=== PATIENT | female | born 1975 | race Caucasian/White ===

== ENCOUNTER → 2017-07-13 | Outpatient (CLI) | payer BC ==
[2017-07-13 10:38] LABS: Basophils % (A) 1 %; CH 32.4; CHCM 34.9; Eosinophils # (A) 0.3 k/uL (0-0.7); Eosinophils % (A) 5 %; HCT 43.7 % (34.0-46.0); HDW 2.68; HGB 14.4 gm/dL (11.4-16.0); Luc # (Auto) 0.15; Luc % (Auto) 2; Lymphocytes # (A) 2.2 k/uL (1.0-4.8); Lymphocytes % (A) 31 %; MCH 30.9 pg (25.0-35.0); MCV 93.5 fL (80.0-100.0); Mean Platelet Volume 7.1; Monocytes # (A) 0.4 k/uL (0-1.0); Monocytes % (A) 5 %; Neutrophils # (A) 4.1 k/uL (1.3-7.7); Neutrophils % (A) 57 %; RBC 4.68 m/uL (3.80-5.40); RDW 13.7 % (11.5-15.5); WBC 7.2 k/uL (3.8-10.6); WBC (Perox) 6.86
== END | disposition home or self-care (01) ==
LOC: LABPAT 10:03
PROVIDERS: ATTEND Anesthesiology
DX: Z01.812 Encounter for preprocedural laboratory examination (principal)
CPT/HCPCS: 85025; 86850; 86900; 86901

== ENCOUNTER 2017-07-17 09:41 | Day surgery (SDC) | payer BC ==
[2017-07-10 11:23] VITALS: BMI 33.8
[~2017-07-17 09:41] MED LIST: DEXAMETHASONE SOD PHOSPHATE 10 MG/ML 1 ML VIAL IV ONE; LACTATED RINGERS 1,000 ML IV SCH; LIDOCAINE 1% 20 ML VIAL (10MG/ML) FOR IV START INTRADERMA PRN; ONDANSETRON 4 MG/2 ML VIAL IVP ONE; SCOPOLAMINE 1.5MG/72HR PATCH TRANSDERM ONE; ceFAZolin 2 GM in SODIUM CHLORIDE 0.9% 100 ML IVPB ONE
[2017-07-17] MEDS ORDERED: LACTATED RINGERS 1,000 ML IV ONE ×2 (10:30→13:30)
[2017-07-17] MEDS ORDERED: HEPARIN SODIUM,PORCINE 5,000 UNIT/ML 1 ML VIAL SQ ONE (10:57)
[2017-07-17] MEDS ORDERED: MIDAZOLAM 2 MG/2 ML VIAL IVP ONE (11:03)
[2017-07-17] MEDS ORDERED: ROCURONIUM BROMIDE 10 MG/ML 10 ML VIAL IV ONE (11:59)
[2017-07-17] MEDS ORDERED: fentaNYL (PF) 50 MCG/ML 2 ML AMP ONE (11:59)
[2017-07-17] MEDS ORDERED: PROPOFOL 10 MG/ML 20 ML VIAL IV ONE (11:59)
[2017-07-17] MEDS ORDERED: LIDOCAINE 1% INJ 10MG/ML (20 ML MDV) ONE (11:59)
[2017-07-17] MEDS ORDERED: SUCCINYLCHOLINE CHLORIDE 100 MG/5 ML SYR IV ONE (11:59)
[2017-07-17] MEDS ORDERED: BUPIVACAINE (PF) 0.25% 30 ML VIAL SQ ONE (12:40)
[2017-07-17] MEDS ORDERED: NALOXONE 0.4 MG/ML 1 ML VIAL IV PRN (14:05)
[2017-07-17] MEDS ORDERED: HYDROcodone/APAP 5-325MG 1 EACH TAB PO PRN (14:05)
--- NOTE | 2017-07-17 14:09 | P.OP ---
Date of Procedure: 07/17/17 Preoperative Diagnosis: Postoperative Diagnosis: Procedure(s) Performed: PREOPERATIVE DIAGNOSIS: Incisional and umbilical hernia POSTOPERATIVE DIAGNOSIS: Same PROCEDURE: Laparoscopic repair incisional and umbilical hernia with da León robotic assistance with mesh SURGEON: Neel EBL: Rhett Isbell ANESTHESIA: Gen. COMPLICATIONS: None OPERATIVE PROCEDURE: Patient was placed on the operating room table in the supine position. Patient was then placed under general anesthesia. The abdomen was prepped and draped in usual sterile fashion. A 5 mm optical trocar was used to enter the abdominal cavity in the left subcostal location and laterally. Insufflation took place fully to 15 mm of mercury. At that point a 12 mm trocar was placed laterally in the mid abdomen. An 8 mm trocar was placed in the left lower quadrant. The initial 5 was then switched to an 8 mm trocar as well. All of these were placed under direct visualization. The trochars were placed so that the neutral center of the trocar was within the abdominal wall. The da León robot was then docked after placing the patient in a slight right decubitus position. I then left the bedside and moved to the da León console. The patient's hernia was inspected. In this particular case the patient had a total of 4 defects. 2 were positioned [id number] at the umbilicus one in the supraumbilical location and one in the infraumbilical location. The most superior defect was closed using a running 0V lock stitch the umbilical incisions were closed horizontally using a running 0V lock stitch. The infraumbilical defect was quite small measuring only a few millimeters in was closed using a single kpetln-po-lqnor 0V lock stitch. A portion of the preperitoneal fat was removed in preparation for closure and this was later removed labeled hernia sac. A 10 x 15 cm mesh was chosen. This was a ventral light ST mesh. This was sutured circumferentially using 2-0 V lock sutures. This was performed in a running fashion using 2 separate sutures. The middle portion of the mesh was also sutured to the abdominal wall. This provided excellent coverage of our fascial closure. We then switched to a traditional laparoscopic approach. The 4 needles were removed at that point. The defect at the 12 mm trocar site was closed using an 0 Vicryl suture and the Gurmeet Crain technique. The skin at all 3 sites were closed using interrupted 4-0 Monocryl sutures. Steri-Strips and sterile dressings were applied. DISPOSITION: Stable to recovery room Implants: Indications for Procedure: Operative Findings: Description of Procedure:
[2017-07-17 14:13] VITALS: TEMP 98.3
[2017-07-17] MEDS: fentaNYL (PF) 50 MCG/ML 2 ML AMP IV PRN ×2 (14:28→14:36)
[2017-07-17] MEDS ORDERED: KETOROLAC 30 MG/ML 1 ML VIAL IVP ONE (14:30)
[2017-07-17 16:32] VITALS: RESP 18
[2017-07-17 17:03] VITALS: BP 105/68; PULSE 81
== END 2017-07-17 17:36 | disposition home or self-care (01) ==
LOC: OR 09:41
PROVIDERS: ATTEND Surgery
DX: K43.0 Incisional hernia with obstruction, without gangrene (principal); K42.0 Umbilical hernia with obstruction, without gangrene; F17.200 Nicotine dependence, unspecified, uncomplicated; K58.9 Irritable bowel syndrome, unspecified; K21.9 Gastro-esophageal reflux disease without esophagitis; M19.90 Unspecified osteoarthritis, unspecified site; G43.909 Migraine, unspecified, not intractable, without status migrainosus; Z79.899 Other long term (current) drug therapy; Z90.710 Acquired absence of both cervix and uterus; Z88.5 Allergy status to narcotic agent
CPT/HCPCS: 49653; S2900; 86850; 86900; 86901; 88302

== ENCOUNTER → 2018-05-03 | Outpatient (CLI) | payer BC ==
[2018-05-03 11:23] VITALS: BP 132/85; PULSE 89; BMI 35.6
--- NOTE | 2018-05-03 12:30 | P.GSHP ---
History of Present Illness H&P Date: 05/03/18 Discharge the patient is a 43-year-old white female who noted some tenderness in her right breast and this was followed by radiographic evaluation. She underwent on a bilateral mammogram after which a right breast diagnostic mammogram was performed in the right breast diagnostic mammogram the question of a focal asymmetric area was less defined and no discrete persisting mass was noted. Precautionary six-month follow-up was recommended. The patient does not have any nipple discharge or changes. The patient has no discrete masses in her breasts. Patient's used to drink 5-6 cups of coffee per day now drains one to 2 cups of coffee per day. The patient does smoke approximately 1 pack per day. Family history: 1. Grandmother with bilateral breast cancer at the age of 35 2. Father leukemia Past surgical history: 1. bilateral tubes in the ears multiple 2. tympanoplasty bilateral 3. mass behind left eardrum, no cancer 4. 5. tublaigation 6. uterine ablation 7. gallbladder 8. hernia umbilical 9 hysterectomy did not take ovaries, for endometirosis Past medical history: 1. chronic depression 2. chronic migrain 3. hydromyeila form of spinal bifida menarche: 12 : 1, at the age of 20, did not breast feed hysterctomy: at 39 BCP/hormones: none social history: smoke: 1 PPD since 16 alcohol: occasional drugs: none ROS: HEENT: tinnitus, decreased hearing heart: none lung: none GI: IBS : as above neuro: migraine allergies: no seasonal - Constitutional Constitutional: Denies chills, Denies fever - EENT Comment: wears glasses Ears: bilateral: decreased hearing, tinnitus Ears, nose, mouth and throat: Reports headache, Denies sore throat - Breasts Breasts: bilateral: as per HPI - Cardiovascular Cardiovascular: Denies chest pain, Denies shortness of breath - Respiratory Respiratory: Denies cough, Denies 7 - Gastrointestinal Comment: IBS - Genitourinary (Female) Genitourinary: Reports as per HPI - Integumentary Integumentary: Denies pruritus, Denies rash - Neurological Comment: hydromyilea Neurological: Denies numbness, Denies weakness - Psychiatric Psychiatric: Reports depression - Endocrine Endocrine: Denies fatigue, Denies weight change - Hematologic/Lymphatic Comment: none - Allergic/Immunologic Allergic/Immunologic: Reports as per HPI Past Medical History Past Medical History: Osteoarthritis (OA) Additional Past Medical History / Comment(s): hydromyelia, migraines, hx ulcers , IBS, History of Any Multi-Drug Resistant Organisms: None Reported Past Surgical History: Section, Cholecystectomy, Ear Surgery, Hysterectomy, Tonsillectomy, Tubal Ligation, Uterine Ablation Additional Past Surgical History / Comment(s): EAR SURGERY-MARIE. TYPANOPLASTIES/ marie tubes, benign tumor removed from behind left eardrum, gall bladder removed in 2013, hernia repair 2017 Past Anesthesia/Blood Transfusion Reactions: No Reported Reaction Additional Past Anesthesia/Blood Transfusion Reaction / Comment(s): panic attack when going in for surgery Past Psychological History: Depression Additional Psychological History / Comment(s): . Smoking Status: Current every day smoker Past Alcohol Use History: Rare Additional Past Alcohol Use History / Comment(s): smoked since age 10, smokes < 1 PPD Past Drug Use History: None Reported - Past Family History Father Family Medical History: Cancer Medications and Allergies Home Medications Medication Instructions Recorded Confirmed Type traMADol HCl [Ultram] 50 mg PO Q6H PRN 07/31/14 05/03/18 History Rizatriptan Benzoate [Maxalt] 10 mg PO DAILY PRN 09/17/15 05/03/18 History Amitriptyline HCl [Amitriptyline 10 mg PO HS 09/22/15 05/03/18 History HCl] Albuterol Inhaler [Ventolin Hfa 2 puff INHALATION Q6HR PRN 07/10/17 05/03/18 History Inhaler] Hydrocodone/Acetaminophen [Flat Top 1 - 2 each PO Q4HR PRN #30 tab 07/17/17 Rx 5-325] Phentermine HCl [Adipex-P] 37.5 tab PO DAILY 05/03/18 05/03/18 History Allergies Allergy/AdvReac Type Severity Reaction Status Date / Time codeine AdvReac Severe Nausea & Verified 07/10/17 11:12 Vomiting Surgical - Exam Vital Signs Pulse BP 89 132/85 05/03/18 11:17 05/03/18 11:17 - General obese - Eyes normal ocular movement - ENT normal pinna, normal nares - Neck no masses, trachea midline, no lymphadectomy, no venous distension - Respiratory normal respiratory effort, clear to auscultation - Cardiovascular Rhythm: regular Heart Sounds: normal: S1, S2 - Abdomen Abdomen: soft, non tender, no guarding, no rigid, no rebound - Integumentary tattoo left shoulder - Neurologic no disoriented, no combative - Musculoskeletal normal gait - Psychiatric oriented to time, oriented to person, oriented to place, speech is normal, memory intact Breast examination: right breast: Asymmetric to the left breast, decrease in size to the left breast this is always been this way as per the patient multiple positional exam no dominant masses or nodules of concern, fibrocystic changes Right axilla: No adenopathy of concern Left breast: No dominant masses or nodules of concern Left axilla: no adenopathy of concern Results Mammogram report reviewed Assessment and Plan Assessment: Impression/plan: 1. Mammographic change right breast repeat in 6 months recommended 2. Asymmetric breast 3. Tobacco user 4. Syringomyelia 5. Depression 6. Caffeine 5-6 cups of coffee/day, decreased at this time Plan: 1. Medical management of medical conditions 2. The patient is a is going to have a repeat right breast mammogram in 6 months time, if she notices any changes in her breast prior to that time would like to see her sooner. The patient is considering breast augmentation after discussion she is going to a 6 month repeat right breast mammogram. At this time there is nothing which would absolutely preclude augmentation however she is going to wait until the 6 month mammogram and making sure that this is stable. We have discussed that the breast pain may also be related to caffeine/nicotine intake and the patient is going to attempt to decrease. cc: Dr. Tena
== END | disposition home or self-care (01) ==
LOC: WWCWWP 11:09
PROVIDERS: ATTEND Surgery
DX: Z53.9 Procedure and treatment not carried out, unspecified reason (principal)

== ENCOUNTER → 2018-12-26 | Outpatient (CLI) | payer BC | END | disposition home or self-care (01) | LOC: RADMAMWWP 08:13 | PROVIDERS: ATTEND Surgery | DX: R92.8 Other abnormal and inconclusive findings on diagnostic imaging of breast (principal) | CPT/HCPCS: 77065 ==

== ENCOUNTER → 2019-04-29 | Outpatient (CLI) | payer BC ==
--- NOTE | 2019-04-30 13:56 | MM ---
Reason for exam: screening (asymptomatic). Last mammogram was performed 4 months ago. History: Patient is postmenopausal. Family history of breast cancer in maternal grandmother at age 30. Physical Findings: A clinical breast exam by your physician is recommended on an annual basis and results should be correlated with mammographic findings. MG Screening Mammo w CAD Bilateral CC and MLO view(s) were taken. Prior study comparison: December 26, 2018, right breast MG diagnostic mammo RT w CAD. April 12, 2018, mammogram, performed at [facility]. There are scattered fibroglandular densities. No suspicious abnormality. No significant changes when compared with prior studies. ASSESSMENT: Negative, BI-RAD 1 RECOMMENDATION: Routine screening mammogram of both breasts in 1 year.
== END | disposition home or self-care (01) ==
LOC: RADMAMWWP 08:42
PROVIDERS: ATTEND Family Medicine
DX: Z12.31 Encounter for screening mammogram for malignant neoplasm of breast (principal)
CPT/HCPCS: 77067

== ENCOUNTER → 2019-10-14 | Outpatient (CLI) | payer BC ==
--- NOTE | 2019-10-14 12:42 | XR ---
EXAMINATION TYPE: XR shoulder complete RT DATE OF EXAM: 10/14/2019 CLINICAL HISTORY: Right shoulder pain after injury TECHNIQUE: Three views of the right shoulder are obtained. COMPARISON: None. FINDINGS: There is no acute fracture/dislocation evident in the right shoulder. The acromioclavicul ar and glenohumeral joint spaces appear within normal limits. The visualized ribs are intact and unr emarkable. IMPRESSION: There is no acute fracture or dislocation in the right shoulder.
== END | disposition home or self-care (01) ==
LOC: RADXRMAIN 11:52
PROVIDERS: ATTEND Family Medicine
DX: M25.511 Pain in right shoulder (principal); M25.611 Stiffness of right shoulder, not elsewhere classified

== ENCOUNTER → 2019-11-29 | Outpatient (CLI) | payer BC ==
--- NOTE | 2019-12-01 15:25 | MR ---
EXAMINATION TYPE: MR shoulder RT wo con DATE OF EXAM: 11/29/2019 COMPARISON: None HISTORY: Rt shoulder pain x 4 mos, no trauma Technique: Multiplanar, multiecho imaging on a 3.0 Amina magnet is performed through the shoulder. Findings: Long head of the biceps tendon is within the bicipital groove. No significant fluid adjacen t No significant joint effusion is evident. Glenoid labrum as visualized on this noncontrast study pema ears intact. Rotator cuff tendons are evaluated. Rotator cuff tendons appear intact. No significant fluid is diana cent. The acromioclavicular junction is hypertrophied which can contribute to impingement syndrome. IMPRESSIONS: 1. Essentially normal MRI right shoulder. 2. There is some mild acromioclavicular joint hypertrophy with downward spurring.
== END | disposition home or self-care (01) ==
LOC: RADMRIMAIN 20:40
PROVIDERS: ATTEND Nurse Practitioner Women's Health
DX: M25.811 Other specified joint disorders, right shoulder (principal); M25.611 Stiffness of right shoulder, not elsewhere classified